=== PATIENT | female | born 1970 | race Caucasian/White ===

== ENCOUNTER 2017-12-22 18:54 | Emergency (ER) | payer OTHER ==
[~2017-12-22] VITALS: Wt 79.4 kg
[~2017-12-22 18:54] MED LIST: ANAPROX DS550 MG PO; ASPIR-TRIN325 MG PO; ATENOLOL25 MG PO; CIPRO500 MG PO; CIPROFLOXACIN500 MG PO; IBU800 MG PO; MICRO-K 10 EXT10 MEQ PO; MOTRIN600 MG PO; ROBAXIN750 MG PO; TRAMADOL HCL50 MG PO; ULTRAM50 MG PO; ZOFRAN ODT4 MG SL
[2017-12-22 19:21] LABS: BASO # 0.1 10*3/uL (0.0-0.1); EOS # 0.2 10*3/uL (0.0-0.4); LYMPH # 2.3 10*3/uL (1.3-4.4); LYMPH % 22.5 % (27.0-41.0); MEAN CORPUSCULAR HGB CONC 33.3 g/dl (33.0-37.0); MONO # 0.7 10*3/uL (0.1-1.0); MONO % 6.4 % (3.0-9.0); NEUT # 7.1 10*3/uL (2.3-7.9); NEUT % 67.7 % (47.0-73.0); PLATELET COUNT AUTOMATED 219 10*3/uL (130-400); RED BLOOD COUNT 5.17 10*6/uL (4.10-5.10); RED CELL DISTRI WIDTH 13.1 % (0-14.5); WHITE BLOOD COUNT 10.4 10*3/uL (4.8-10.8)
[2017-12-22 19:37] LABS: ACT PARTIAL THROMBO TIME 23.3 SECONDS (20.8-31.5); ALBUMIN 4.1 gm/dl (3.1-4.5); ALKALINE PHOSPHATASE 75 U/L (45-117); BUN 14 mg/dl (7-24); CHLORIDE 104 mmol/L (98-107); CREATININE 0.65 mg/dL (0.55-1.02); POTASSIUM 4.2 mmol/L (3.5-5.1); SGOT/AST 24 IU/L (3-35); SGPT/ALT 50 U/L (12-78); SODIUM 138 mmol/L (136-145); TOTAL PROTEIN 7.7 gm/dL (6.4-8.2)
[2017-12-22 19:38] LABS: TROPONIN I < 0.015 ng/ml (<0.045)
== END 2017-12-22 22:35 | disposition home or self-care (01) ==
LOC: ED 18:54
PROVIDERS: Emergency Medicine
DX: R07.89 Other chest pain (principal); Z98.890 Other specified postprocedural states; Z98.51 Tubal ligation status; Z79.82 Long term (current) use of aspirin; Z79.899 Other long term (current) drug therapy; Z88.0 Allergy status to penicillin

== ENCOUNTER → 2019-09-04 | Outpatient (CLI) | payer OTHER ==
[2019-09-04 12:19] LABS: ALKALINE PHOSPHATASE 76 U/L (45-117); BUN 9 mg/dl (7-24); CHLORIDE 107 mmol/L (98-107); CHOLESTEROL 157 mg/dL (<200); CREATININE 0.71 mg/dL (0.55-1.02); GAMMA GLUTAMYL TRANSPEPTIDASE 32 U/L (5-55); HDL CHOLESTEROL 36 mg/dl (40-60); IRON 60 ug/dL (50-170); LDL CHOLESTEROL 84 mg/dL (9-159); POTASSIUM 4.1 mmol/L (3.5-5.1); SGOT/AST 20 IU/L (3-35); SGPT/ALT 44 U/L (12-78); SODIUM 136 mmol/L (136-145); T3 UPTAKE 31 % (31-39); THYROXINE (T4) TOTAL 10.4 ug/dl (4.8-13.9); TOTAL IRON BINDING CAPACITY 366 ug/dl (250-450); TOTAL PROTEIN 7.7 gm/dL (6.4-8.2); TRIGLYCERIDES 183 mg/dl (<150); URIC ACID 4.4 mg/dL (2.6-6.0); VLDL CHOLESTEROL 37 mg/dL (6-40)
[2019-09-04 12:25] LABS: B-hCG (QUALITATIVE) NEGATIVE (NEGATIVE)
[2019-09-04 12:28] LABS: BILIRUBIN NEGATIVE (NEGATIVE); BLOOD NEGATIVE (NEGATIVE); CLARITY SL CLOUDY (CLEAR); COLOR YELLOW (YELLOW); GLUCOSE NEGATIVE (NEGATIVE); KETONE NEGATIVE (NEGATIVE); PH 7.5 (5.0-9.0)
[2019-09-04 12:29] LABS: BETA-HCG, QUANT < 1.0 mIU/mL (1-3); LEUKO ESTERASE NEGATIVE (NEGATIVE); NITRITE NEGATIVE (NEGATIVE); UROBILINOGEN 0.2 E.U./dl (0.2-1.0)
[2019-09-04 12:39] LABS: BASO # 0.1 10*3/uL (0.0-0.1); BASO % 1.2 % (0.0-1.0); EOS # 0.2 10*3/uL (0.0-0.4); EOS % 2.8 % (1.0-4.0); HEMATOCRIT 45.5 % (37.0-47.0); HEMOGLOBIN 14.9 g/dl (12.0-16.0); LYMPH # 2.3 10*3/uL (1.3-4.4); LYMPH % 31.4 % (27.0-41.0); MEAN CELL VOLUME 88.2 fl (81.0-99.0); MEAN CORPUSCULAR HGB 28.9 pg (27.0-31.0); MEAN CORPUSCULAR HGB CONC 32.7 g/dl (33.0-37.0); MEAN PLATELET VOLUME 10.1 fl (9.6-12.3); MONO # 0.5 10*3/uL (0.1-1.0); MONO % 6.9 % (3.0-9.0); NEUT # 4.2 10*3/uL (2.3-7.9); NEUT % 57.3 % (47.0-73.0); PLATELET COUNT AUTOMATED 226 10*3/uL (130-400); RED BLOOD COUNT 5.16 10*6/uL (4.10-5.10); RED CELL DISTRI WIDTH 12.6 % (0-14.5); RETICULOCYTE % 1.58 % (0.50-2.50); WHITE BLOOD COUNT 7.4 10*3/uL (4.8-10.8)
[2019-09-04 12:49] LABS: BACTERIA 3+
[2019-09-04 13:22] LABS: FERRITIN 53.3 ng/mL (10.0-291.0); VITAMIN D, 25-HYDROXY 34.8 ng/mL (30-100)
[2019-09-05 06:08] LABS: DHEA SULFATE 128.4 ug/dL (41.2-243.7); FOLLICLE STIMULATING HORMONE 5.2 mIU/mL (.); LUTEINIZING HORMONE 004283 5.2 mIU/mL (.); PROGESTERONE 004317 11.7 ng/mL (.); PROLACTIN 004465 10.4 ng/mL (4.8-23.3); SEX HORMONE BINDING GLOBULIN 84.7 nmol/L (24.6-122.0)
[2019-09-05 08:07] LABS: RHEUMATOID ARTHRITIS FACTOR <10.0 IU/mL (0.0-13.9)
[2019-09-05 13:05] LABS: ANTI-DSDNA ANTIBODIES 096339 <1 IU/mL (0-9)
[2019-09-05 15:09] LABS: HUMAN GROWTH HORMONE 0.4 ng/mL (0.0-10.0)
[2019-09-10 15:19] LABS: DEHYDROEPIANDROSTERONE 004100 91 ng/dL (31-701)
== END | disposition home or self-care (01) ==
LOC: LAB 11:10
PROVIDERS: Family Medicine
DX: R79.89 Other specified abnormal findings of blood chemistry (principal); R53.83 Other fatigue; E78.5 Hyperlipidemia, unspecified; R74.8 Abnormal levels of other serum enzymes; N92.6 Irregular menstruation, unspecified; E55.9 Vitamin D deficiency, unspecified

== ENCOUNTER → 2020-05-12 | Outpatient (CLI) | payer OTHER ==
[2020-05-12 12:44] LABS: BILIRUBIN Negative (Negative); BLOOD Negative (Negative); CLARITY Cloudy (Clear); COLOR Yellow (Yellow); GLUCOSE Negative (Negative); KETONE Negative (Negative); LEUKO ESTERASE Negative (Negative); NITRITE Negative (Negative); PH 5.5 (4.5-8.0)
[2020-05-12 12:45] LABS: BASO # 0.1 10*3/uL (0.0-0.1); BASO % 1.5 % (0.0-1.0); EOS # 0.2 10*3/uL (0.0-0.4); EOS % 2.6 % (1.0-4.0); HEMATOCRIT 46.7 % (37.0-47.0); LYMPH # 2.6 10*3/uL (1.3-4.4); MEAN CELL VOLUME 87.1 fl (81.0-99.0); MEAN CORPUSCULAR HGB 28.4 pg (27.0-31.0); MEAN CORPUSCULAR HGB CONC 32.5 g/dl (33.0-37.0); MEAN PLATELET VOLUME 10.2 fl (9.6-12.3); MONO # 0.5 10*3/uL (0.1-1.0); MONO % 6.4 % (3.0-9.0); NEUT # 4.6 10*3/uL (2.3-7.9); PLATELET COUNT AUTOMATED 228 10*3/uL (130-400); RED BLOOD COUNT 5.36 10*6/uL (4.10-5.10); RED CELL DISTRI WIDTH 12.3 % (0-14.5); RETICULOCYTE % 1.85 % (0.50-2.50); WHITE BLOOD COUNT 8.1 10*3/uL (4.8-10.8)
[2020-05-12 13:02] LABS: ALBUMIN 3.8 gm/dl (3.1-4.5); ALKALINE PHOSPHATASE 77 U/L (45-117); BUN 11 mg/dl (7-24); CHLORIDE 107 mmol/L (98-107); CHOLESTEROL 176 mg/dL (<200); CREATININE 0.68 mg/dL (0.55-1.02); GAMMA GLUTAMYL TRANSPEPTIDASE 46 U/L (5-55); HDL CHOLESTEROL 30 mg/dl (40-60); IRON 96 ug/dL (50-170); LDL CHOLESTEROL 72 mg/dL (9-159); POTASSIUM 3.8 mmol/L (3.5-5.1); SGOT/AST 34 IU/L (3-35); SGPT/ALT 74 U/L (12-78); SODIUM 137 mmol/L (136-145); T3 UPTAKE 29 % (31-39); THYROXINE (T4) TOTAL 10.3 ug/dl (4.8-13.9); TOTAL IRON BINDING CAPACITY 384 ug/dl (250-450); TOTAL PROTEIN 7.7 gm/dL (6.4-8.2); TRIGLYCERIDES 369 mg/dl (<150); URIC ACID 5.2 mg/dL (2.6-6.0); VLDL CHOLESTEROL 74 mg/dL (6-40)
[2020-05-12 13:08] LABS: BACTERIA 2+; EPITHELIAL CELLS 16-20
[2020-05-12 13:08] LABS: BETA-HCG, QUANT < 1.0 mIU/mL (1-3)
[2020-05-12 14:44] LABS: FERRITIN 38.3 ng/mL (10.0-291.0); VITAMIN D, 25-HYDROXY 20.8 ng/mL (30-100)
[2020-05-13 08:08] LABS: RHEUMATOID ARTHRITIS FACTOR <10.0 IU/mL (0.0-13.9)
[2020-05-13 09:09] LABS: FOLLICLE STIMULATING HORMONE 8.3 mIU/mL (.); LUTEINIZING HORMONE 9.5 mIU/mL (.); PROGESTERONE 3.3 ng/mL (.); PROLACTIN 14.2 ng/mL (4.8-23.3)
[2020-05-13 14:13] LABS: ANTI-DSDNA ANTIBODIES <1 IU/mL (0-9)
[2020-05-14 07:06] LABS: INSULIN-LIKE GROWTH FACTOR-1 104 ng/mL (70-225)
== END | disposition home or self-care (01) ==
LOC: LAB 11:52
PROVIDERS: ATTEND Family Medicine
DX: E55.9 Vitamin D deficiency, unspecified (principal); E78.5 Hyperlipidemia, unspecified; R79.89 Other specified abnormal findings of blood chemistry; R53.83 Other fatigue; R74.8 Abnormal levels of other serum enzymes

== ENCOUNTER → 2020-10-22 | Outpatient (CLI) | payer OTHER ==
[2020-10-22 16:01] LABS: BILIRUBIN Negative (Negative); BLOOD Negative (Negative); CLARITY Cloudy (Clear); COLOR Yellow (Yellow); GLUCOSE Negative (Negative); KETONE Negative (Negative); LEUKO ESTERASE Negative (Negative); NITRITE Negative (Negative); UROBILINOGEN 0.2 E.U./dl (0.0-1.0)
[2020-10-22 16:09] LABS: BASO # 0.1 10*3/uL (0.0-0.1); BASO % 1.4 % (0.0-1.0); EOS # 0.3 10*3/uL (0.0-0.4); EOS % 3.5 % (1.0-4.0); HEMATOCRIT 46.7 % (37.0-47.0); LYMPH # 2.6 10*3/uL (1.3-4.4); LYMPH % 33.4 % (27.0-41.0); MEAN CELL VOLUME 88.8 fl (81.0-99.0); MEAN CORPUSCULAR HGB 28.7 pg (27.0-31.0); MEAN CORPUSCULAR HGB CONC 32.3 g/dl (33.0-37.0); MONO # 0.6 10*3/uL (0.1-1.0); MONO % 7.2 % (3.0-9.0); NEUT # 4.1 10*3/uL (2.3-7.9); NEUT % 54.2 % (47.0-73.0); PLATELET COUNT AUTOMATED 212 10*3/uL (130-400); RED BLOOD COUNT 5.26 10*6/uL (4.10-5.10); RED CELL DISTRI WIDTH 12.9 % (0-14.5); WHITE BLOOD COUNT 7.6 10*3/uL (4.8-10.8)
[2020-10-22 16:13] LABS: WBC 16-20 wbc/hpf (0-5)
[2020-10-22 16:14] LABS: BACTERIA 4+
[2020-10-22 16:27] LABS: ALBUMIN 3.5 gm/dl (3.1-4.5); BUN 11 mg/dl (7-24); CHLORIDE 109 mmol/L (98-107); CHOLESTEROL 178 mg/dL (<200); CPK 69 U/L (26-192); CREATININE 0.68 mg/dL (0.55-1.02); GAMMA GLUTAMYL TRANSPEPTIDASE 48 U/L (5-55); HDL CHOLESTEROL 32 mg/dl (40-60); IRON 80 ug/dL (50-170); LDL CHOLESTEROL 93 mg/dL (9-159); POTASSIUM 3.9 mmol/L (3.5-5.1); SGOT/AST 23 IU/L (3-35); SGPT/ALT 60 U/L (12-78); SODIUM 140 mmol/L (136-145); TOTAL IRON BINDING CAPACITY 387 ug/dl (250-450); TOTAL PROTEIN 7.3 gm/dL (6.4-8.2); TRIGLYCERIDES 267 mg/dl (<150); URIC ACID 5.7 mg/dL (2.6-6.0); VLDL CHOLESTEROL 53 mg/dL (6-40)
[2020-10-22 16:34] LABS: ALKALINE PHOSPHATASE 73 U/L (45-117)
[2020-10-22 16:36] LABS: FERRITIN 47.6 ng/mL (10.0-291.0); VITAMIN D, 25-HYDROXY 53.5 ng/mL (30-100)
[2020-10-23 05:06] LABS: RHEUMATOID ARTHRITIS FACTOR <10.0 IU/mL (0.0-13.9)
[2020-10-24 15:06] LABS: ANTI-DSDNA ANTIBODIES <1 IU/mL (0-9)
[2020-10-28 02:05] LABS: IGG P18 AB Absent (.); IGG P23 AB Absent (.); IGG P28 AB Absent (.); IGG P30 AB Absent (.); IGG P39 AB Absent (.); IGG P41 AB Present (.); IGG P45 AB Absent (.); IGG P58 AB Absent (.); IGG P63 AB Absent (.); IGG P66 AB Absent (.); IGM P23 AB Absent (.); IGM P39 AB Absent (.); IGM P41 AB Absent (.); LYME IGG WB INTERPRETATION Negative (.); LYME IGM WB INTERPRETATION Negative (.); LYME REFLEX CHARGE CHG
== END | disposition home or self-care (01) ==
LOC: LAB 15:35
PROVIDERS: ATTEND Family Medicine
DX: E78.5 Hyperlipidemia, unspecified (principal); E55.9 Vitamin D deficiency, unspecified; R79.89 Other specified abnormal findings of blood chemistry; R53.83 Other fatigue; R74.8 Abnormal levels of other serum enzymes

== ENCOUNTER → 2020-11-02 | Outpatient (CLI) | payer OTHER | END | disposition home or self-care (01) | LOC: RAD 13:57 | PROVIDERS: ATTEND Family Medicine | DX: M51.34 Other intervertebral disc degeneration, thoracic region (principal); M50.30 Other cervical disc degeneration, unspecified cervical region ==

== ENCOUNTER → 2021-01-11 | Outpatient (CLI) | payer OTHER | END | disposition home or self-care (01) | LOC: US 00:19 | PROVIDERS: ATTEND Nurse Practitioner Women's Health | DX: D25.9 Leiomyoma of uterus, unspecified (principal); N93.9 Abnormal uterine and vaginal bleeding, unspecified ==

== ENCOUNTER → 2021-12-27 | Outpatient (CLI) | payer OTHER | END | disposition home or self-care (01) | LOC: CARD 12-22 11:30 | PROVIDERS: ATTEND Internal Medicine Cardiovascular Disease | DX: R00.0 Tachycardia, unspecified (principal) ==

== ENCOUNTER → 2023-01-22 | Outpatient (CLI) | payer OTHER | LOC: LAB 15:49 | PROVIDERS: ATTEND Family Medicine | DX: M25.512 Pain in left shoulder (principal) ==

== ENCOUNTER → 2023-04-09 | Outpatient (CLI) | payer OTHER ==
[2023-04-09 12:05] LABS: BASO # 0.1 10*3/uL (0.0-0.1); BASO % 1.6 % (0.0-1.0); EOS # 0.2 10*3/uL (0.0-0.4); EOS % 3.2 % (1.0-4.0); HEMATOCRIT 47.2 % (37.0-47.0); LYMPH # 2.5 10*3/uL (1.3-4.4); LYMPH % 35.2 % (27.0-41.0); MEAN CELL VOLUME 88.7 fl (81.0-99.0); MEAN CORPUSCULAR HGB 28.9 pg (27.0-31.0); MEAN CORPUSCULAR HGB CONC 32.6 g/dl (33.0-37.0); MEAN PLATELET VOLUME 9.7 fl (9.6-12.3); MONO # 0.5 10*3/uL (0.1-1.0); MONO % 6.6 % (3.0-9.0); NEUT # 3.7 10*3/uL (2.3-7.9); NEUT % 53.1 % (47.0-73.0); PLATELET COUNT AUTOMATED 233 10*3/uL (130-400); RED BLOOD COUNT 5.32 10*6/uL (4.10-5.10); RED CELL DISTRI WIDTH 13.2 % (0-14.5); RETICULOCYTE % 1.39 % (0.50-2.50)
[2023-04-09 12:06] LABS: BILIRUBIN Negative (Negative); BLOOD 1+ (Negative); CLARITY Clear (Clear); COLOR Yellow (Yellow); GLUCOSE Negative (Negative); KETONE Negative (Negative); LEUKO ESTERASE Negative (Negative); NITRITE Negative (Negative); PH 6.5 (4.5-8.0)
[2023-04-09 12:35] LABS: ALKALINE PHOSPHATASE 90 U/L (46-116); BUN 6 mg/dl (9-23); CHLORIDE 107 mmol/L (98-107); CHOLESTEROL 178 mg/dL (<200); GAMMA GLUTAMYL TRANSPEPTIDASE 50 U/L (0-73); LDL CHOLESTEROL 84 mg/dL (9-159); POTASSIUM 4.1 mmol/L (3.4-5.1); SGPT/ALT 65 U/L (10-49); T3 UPTAKE 19.8 % (22.4-36.7); THYROXINE (T4) TOTAL 7.9 ug/dl (4.5-10.9); TOTAL PROTEIN 7.4 gm/dL (6.0-8.0); TRIGLYCERIDES 318 mg/dl (<150); URIC ACID 6.1 mg/dL (3.1-7.8)
[2023-04-09 12:38] LABS: VITAMIN D, 25-HYDROXY 73.8 ng/mL (30-100)
[2023-04-09 12:41] LABS: BACTERIA TRACE; MUCOUS 1+; WBC 0-2 wbc/hpf (0-5)
[2023-04-10 13:07] LABS: ANTI-DSDNA ANTIBODIES <1 IU/mL (0-9)
== END | disposition home or self-care (01) ==
LOC: LAB 11:27
PROVIDERS: ATTEND Family Medicine
DX: E78.5 Hyperlipidemia, unspecified (principal); R53.83 Other fatigue; R74.8 Abnormal levels of other serum enzymes; E55.9 Vitamin D deficiency, unspecified; R79.89 Other specified abnormal findings of blood chemistry

== ENCOUNTER → 2023-12-17 | Outpatient (CLI) | payer MEDICAID ==
[2023-12-17 15:06] LABS: BASO # 0.1 10*3/uL (0.0-0.1); BASO % 1.4 % (0.0-1.0); EOS # 0.3 10*3/uL (0.0-0.4); EOS % 3.6 % (1.0-4.0); HEMATOCRIT 48.4 % (37.0-47.0); LYMPH # 2.5 10*3/uL (1.3-4.4); LYMPH % 32.4 % (27.0-41.0); MEAN CELL VOLUME 87.7 fl (81.0-99.0); MEAN CORPUSCULAR HGB 28.6 pg (27.0-31.0); MEAN CORPUSCULAR HGB CONC 32.6 g/dl (33.0-37.0); MEAN PLATELET VOLUME 10.2 fl (9.6-12.3); MONO # 0.5 10*3/uL (0.1-1.0); MONO % 5.9 % (3.0-9.0); NEUT # 4.4 10*3/uL (2.3-7.9); NEUT % 56.4 % (47.0-73.0); NUCLEATED RED BLOOD CELL 0.5 % (0.0-0.0); PLATELET COUNT AUTOMATED 222 10*3/uL (130-400); RED BLOOD COUNT 5.52 10*6/uL (4.10-5.10); RETICULOCYTE % 1.47 % (0.50-2.50); WHITE BLOOD COUNT 7.8 10*3/uL (4.8-10.8)
[2023-12-17 15:16] LABS: BILIRUBIN Negative (Negative); BLOOD Negative (Negative); CLARITY Cloudy (Clear); COLOR Yellow (Yellow); GLUCOSE Negative (Negative); KETONE Negative (Negative); LEUKO ESTERASE Negative (Negative); NITRITE Negative (Negative); UROBILINOGEN 0.2 E.U./dl (0.0-1.0)
[2023-12-17 15:36] LABS: VITAMIN D, 25-HYDROXY 66.2 ng/mL (30-100)
[2023-12-17 15:37] LABS: ALKALINE PHOSPHATASE 84 U/L (46-116); BUN 10 mg/dl (9-23); CHLORIDE 108 mmol/L (98-107); CHOLESTEROL 191 mg/dL (<200); GAMMA GLUTAMYL TRANSPEPTIDASE 43 U/L (0-73); LDL CHOLESTEROL 97 mg/dL (9-159); POTASSIUM 3.9 mmol/L (3.4-5.1); SGPT/ALT 31 U/L (5-49); TOTAL PROTEIN 7.5 gm/dL (6.0-8.0); TRIGLYCERIDES 289 mg/dl (<150); URIC ACID 6.5 mg/dL (3.1-7.8)
[2023-12-17 15:43] LABS: BACTERIA 1+; EPITHELIAL CELLS 16-20; MUCOUS 1+; RBC 0-2 rbc/hpf (0-2)
[2023-12-18 12:08] LABS: ANTI-DSDNA ANTIBODIES <1 IU/mL (0-9)
== END | disposition home or self-care (01) ==
LOC: LAB 13:43
PROVIDERS: ATTEND Family Medicine
DX: M50.820 Other cervical disc disorders, mid-cervical region, unspecified level (principal); E78.5 Hyperlipidemia, unspecified; E55.9 Vitamin D deficiency, unspecified; M47.812 Spondylosis without myelopathy or radiculopathy, cervical region; R79.89 Other specified abnormal findings of blood chemistry; R53.83 Other fatigue; M19.012 Primary osteoarthritis, left shoulder; M48.02 Spinal stenosis, cervical region; M51.87 Other intervertebral disc disorders, lumbosacral region; M48.061 Spinal stenosis, lumbar region without neurogenic claudication